=== PATIENT | male | born 1970 ===

== ENCOUNTER → 2019-03-30 | Outpatient (REF) ==
--- NOTE | 2019-03-31 03:01 | REP ---
Clinical: Nontraumatic right knee pain. Technique: AP, lateral, bilateral oblique and sunrise views right knee . Findings: The osseous structures and joint spaces are intact and normal. There is no evidence for acute fracture or dislocation. No joint effusion is appreciated. Surrounding soft tissues are unremarkable. No subcutaneous emphysema or radiodense foreign body. Impression: Normal examination. No acute fracture or dislocation. Electronically Signed by Anton Andre MD 03/31/2019 02:52 A
== END ==
LOC: M SMT 14:16
PROVIDERS: ATTEND Internal Medicine
DX: Z02.71 Encounter for disability determination (principal)